=== PATIENT | male | born 1960 | race Caucasian/White ===

== ENCOUNTER 2023-12-27 12:16 | Observation (INO) | payer OTHER ==
--- OUTSIDE RECORDS SUMMARY | 2023-12-27 12:20 | XMS REPORT | Continuity of Care Document ---
Author Name Unknown Address [address] [facility] [address] [place] [address] [facility] thconnect Address [address] [facility] [address] [place] [address] Care Team Providers Care Cloth Weaver Name Role Phone Ria Meraz MD Primary Care Physician DENNISE CUMMINS Attending Clinician Maru Dennise Lee MD Attending Clinician RIA MERAZ Attending Clinician Unavailable RIA MERAZ Attending Clinician Unavailable Darell Madera RN Attending Clinician Unavailabl e Doctor Unassigned, [place] Attending Clinician U navailable Testing, [facility] Pulmonary Function Attending Clinic anel Unavailable LUZ ODEN Attending Clinician Unajustine labtatiana Lab, Ang - Db Attending Clinician Unavailable RADIOLOGY Attending Clinician Unavailable Radiology Attending Clinician Unavailable ED KOROMA Admitting Clinician Unavail able Payers Payer Name Policy Type Policy Number Effective Date Expirati on Date Source [employer] II [id number] 2021 00:00:00 00:00:00 Problems Condition Name Condition Details Condition Category Status Onset Date Resolution Date Last Treatment Date Treating Clinician Comments Source Erectile dysfunctio n, unspecifie d erectile dysfunctio n type Erectile dysfunctio n, unspecifie d erectile dysfunctio n type Disease Active 2021-09 017 00:00: 00 [facility] Lung nodule < 6cm on CT Lung nodule < 6cm on CT Disease Active 05-26 00:00: 00 [facility] Adrenal incidental john Adrenal incidental john Disease Active 05-26 00:00: 00 [facility] Restless leg syndrome Restless leg syndrome Disease Active 05-18 00:00: 00 [facility] Muscle cramps Muscle cramps Disease Active 05-18 00:00: 00 [facility] Periodic limb movement disorder Periodic limb movement disorder Disease Active 05-18 00:00: 00 [facility] No known active problems No known active problems Disease [facility] Allergies, Adverse Reactions, Alerts Allergy Name Allergy Type Status Severity Reaction(s) Onset Date Inactive Date Treating Clinician Comments Source NO KNOWN ALLERGIE S Drug Class Active [facility] Social History Social Habit Start Date Stop Date Quantity Comments Source [facility] History of tobacco use Cigarette Smoker [facility] History SDOH Alcohol Frequency [facility] History SDOH Alcohol Std Drinks [facility] History SDOH Alcohol Binge [facility] History of Social function 2023-05-03 00:00:00 2023-05-03 00:00:00 [facility] Alcohol intake 2023-05-03 00:00:00 2023-05-03 00:00:00 Current drinker of alcohol (finding) [facility] Exposure to SARS-CoV-2 (event) 2022-06-23 00:00:00 2022-07-03 15:51:00 Not sure [facility] Cigarettes smoked current (pack per day) - Reported 2022-05-18 00:00:00 2022-05-18 00:00:00 [facility] Cigarette pack-years 2022-05-18 00:00:00 2022-05-18 00:00:00 [facility] Tobacco use and exposure 2022-05-18 00:00:00 2022-05-18 00:00:00 Smokeless tobacco non-user [facility] Alcohol Comment 2022-05-05 00:00:00 2022-05-05 00:00:00 3-4 times a week, 7 7's [facility] Sex Assigned At 1960 00:00:00 1960 00:00:00 [facility] Smoking Status Start Date Stop Date Source Smokes tobacco daily 2022-05-18 00:00:00 [facility] Medications Ordered Medication Name Filled Medication Name Start Date Stop Date Current Medication? Ordering Clinician Indication Dosage Frequency Signature (SIG) Comments Components Source varenicline (CHANTIX) 1 mg tablet 05-31 00:00: 00 Yes [id number] 1mg Take 1 tablet by mouth in the morning and 1 tablet in the evening. [facility] gabapentin 100 mg capsule 05-03 00:00: 00 Yes [id number] 100mg Take 1 capsule by mouth every evening. [facility] sildenafiL 50 mg tablet 05-03 00:00: 00 Yes [id number] 50mg Take 1 tablet by mouth every evening as needed for Other (Take 1 hour befor intercours e). [facility] varenicline (CHANTIX STARTING MONTH BOX) 0.5 mg (11)- 1 mg (42) tablet 05-03 00:00: 00 Yes [id number] Take one 0.5mg tab by mouth once daily for 3 days, then one 0.5mg tab twice daily for 4 days, then one 1mg tab twice daily. [facility] gabapentin 100 mg capsule 2021-09 00:00: 00 05-03 00:00 :00 No [id number] 100mg Take 1 capsule by mouth every evening. [facility] sildenafiL 50 mg tablet 2021-09 00:00: 00 05-03 00:00 :00 No [id number] 50mg Take 1 tablet by mouth every evening as needed for Other (Take 1 hour befor intercours e). [facility] gabapentin 100 mg capsule 05-18 00:00: 00 07-03 00:00 :00 No [id number] 100mg Take 1 capsule by mouth every evening. [facility] sildenafiL 50 mg tablet 05-18 00:00: 00 07-03 00:00 :00 No [id number] 50mg Take 1 tablet by mouth every evening as needed for Other (Take 1 hour befor intercours e). [facility] No known medications 8 08:20: 30 No No known medication s [facility] Immunizations Ordered Immunization Name Filled Immunization Name Date Status Comments Source SARS-COV-2 COVID-19 MADELYN/J&J VACCINE 2020-12-27 00:00:00 Completed [facility] SARS-COV-2 COVID-19 MADELYN/J&J VACCINE 2020-12-27 00:00:00 Completed [facility] SARS-COV-2 COVID-19 MADELYN/J&J VACCINE 2020-12-27 00:00:00 Completed [facility] SARS-COV-2 COVID-19 MADELYN/J&J VACCINE 2020-12-27 00:00:00 Completed [facility] SARS-COV-2 COVID-19 MADELYN/J&J VACCINE 2020-12-27 00:00:00 Completed [facility] SARS-COV-2 COVID-19 MADELYN/J&J VACCINE 2020-12-27 00:00:00 Completed [facility] SARS-COV-2 COVID-19 MADELYN/J&J VACCINE 2020-12-27 00:00:00 Completed [facility] SARS-COV-2 COVID-19 MADELYN/J&J VACCINE 2020-12-27 00:00:00 Completed [facility] SARS-COV-2 COVID-19 MADELYN/J&J VACCINE 2020-12-27 00:00:00 Completed [facility] SARS-COV-2 COVID-19 MADELYN/J&J VACCINE 2020-12-27 00:00:00 Completed [facility] SARS-COV-2 COVID-19 MADELYN/J&J VACCINE 2020-12-27 00:00:00 Completed [facility] SARS-COV-2 COVID-19 MADELYN/J&J VACCINE 2020-12-27 00:00:00 Completed [facility] SARS-COV-2 COVID-19 MADELYN/J&J VACCINE 2020-12-27 00:00:00 Completed [facility] SARS-COV-2 COVID-19 MADELYN/J&J VACCINE Unknown Completed [facility] SARS-COV-2 COVID-19 MADELYN/J&J VACCINE Unknown Completed [facility] Vital Signs Vital Name Observation Time Observation Value Comments S ource Systolic blood pressure 2023-05-03 19:18:00 123 mm[Hg] [facility] Diastolic blood pressure 2023-05-03 19:18:00 81 mm[Hg] [facility] Heart rate 2023-05-03 19:18:00 75 /min [facility] Body temperature 2023-05-03 19:18:00 36.72 Ursula [facility] Body height 2023-05-03 19:18:00 170.2 cm [facility] Body weight 2023-05-03 19:18:00 71.804 kg [facility] BMI 2023-05-03 19:18:00 24.79 kg/m2 [facility] Oxygen saturation in Arterial blood by Pulse oximetry 2023-05-03 19:18:00 97 /min [facility] Systolic blood pressure 2022-07-03 21:08:00 122 mm[Hg] [facility] Diastolic blood pressure 2022-07-03 21:08:00 71 mm[Hg] [facility] Heart rate 2022-07-03 21:08:00 70 /min [facility] Body temperature 2022-07-03 21:08:00 36.67 Ursula [facility] Body height 2022-07-03 21:08:00 170.2 cm [facility] Body weight 2022-07-03 21:08:00 73.936 kg [facility] BMI 2022-07-03 21:08:00 25.53 kg/m2 [facility] Oxygen saturation in Arterial blood by Pulse oximetry 2022-07-03 21:08:00 97 /min [facility] Systolic blood pressure 2022-05-18 21:19:00 130 mm[Hg] [facility] Diastolic blood pressure 2022-05-18 21:19:00 73 mm[Hg] [facility] Heart rate 2022-05-18 21:19:00 89 /min [facility] Body temperature 2022-05-18 21:19:00 36.39 Ursula [facility] Body height 2022-05-18 21:19:00 170.2 cm [facility] Body weight 2022-05-18 21:19:00 71.668 kg [facility] BMI 2022-05-18 21:19:00 24.75 kg/m2 [facility] Oxygen saturation in Arterial blood by Pulse oximetry 2022-05-18 21:19:00 97 /min [facility] Systolic blood pressure 2022-05-05 13:21:00 130 mm[Hg] [facility] Diastolic blood pressure 2022-05-05 13:21:00 88 mm[Hg] [facility] Heart rate 2022-05-05 13:20:00 77 /min [facility] Body temperature 2022-05-05 13:20:00 36.89 Ursula [facility] Body height 2022-05-05 13:20:00 170.2 cm [facility] Body weight 2022-05-05 13:20:00 72.077 kg [facility] BMI 2022-05-05 13:20:00 24.89 kg/m2 [facility] Oxygen saturation in Arterial blood by Pulse oximetry 2022-05-05 13:20:00 98 /min [facility] Procedures Procedure Date / Time Performed Performing Clinicia n Source EXTERNAL PROVIDER RECORDS 2022-07-20 05:01:00 Doctor Unassigned, [place] [facility] DEXA AXIAL (HIP AND SPINE) 2022-05-24 21:03:16 Ria Meraz [facility] Encounters Start Date/Time End Date/Time Encounter Type Admission Type Attending Clinicians Care Facility Care Department Encounter ID Source 2023-12-27 09:00:00 2023-12-27 09:00:00 Outpatient DENNISE MITCHELL [facility] [id number] [facility] 2023-12-27 00:00:00 2023-12-27 00:00:00 Nurse Triage Dennise Cummins Thad [facility] 1.2.840.114 350.1.13.10 4.2.7.2.686 [id number] [facility] 2023-09-03 08:00:00 2023-09-03 08:00:00 Outpatient RIA [facility] [id number] [facility] 2023-05-26 00:00:00 2023-05-26 00:00:00 Outpatient RIA [facility] [id number] [facility] 2023-05-25 00:00:00 2023-05-25 00:00:00 Case Management Darell Madera CHANA ZENDEJAS [facility] 1.2.840.114 350.1.13.10 4.2.7.2.686 [id number] [facility] 2023-05-16 00:00:00 2023-05-16 00:00:00 Case Management Darell MaderaGarrick [facility] 1.2.840.114 350.1.13.10 4.2.7.2.686 [id number] [facility] 2023-05-03 14:40:00 2023-05-03 15:00:00 [facility] 1.2.840.114 350.1.13.10 4.2.7.2.686 [id number] [facility] 2023-05-03 14:40:00 2023-05-03 14:40:00 Outpatient R RIA MERAZ [facility] [id number] [facility] 2023-04-25 00:00:00 2023-04-25 00:00:00 Case Management Darell Madera Thad ORTIZGarrick [facility] [place] 1.840.114 350.1.13.10 4.2.7.2.686 [id number] [facility] 2022-07-20 00:00:00 2022-07-20 00:00:00 Orders Only Doctor Unassigned, [place] [facility] 1.284.114 350.1.13.10 4.2.7.2.686 [id number] [facility] 2022-07-03 16:00:00 2022-07-03 16:35:48 [facility] [id number] [facility] 2022-07-03 16:00:00 2022-07-03 16:35:48 Office Visit Ria Meraz [facility] 1..840.114 350.1.13.10 4.2.7.2.686 [id number] [facility] 2022-07-03 16:00:00 2022-07-03 16:00:00 [facility] [id number] [facility] 2022-05-24 16:01:24 2022-05-24 23:59:00 [facility] 1..840.114 350.1.13.10 4.2.7.2.686 [id number] [facility] 2022-05-24 15:31:06 2022-05-24 16:00:00 Outpatient R [facility] [id number] [facility] 2022-05-24 15:31:06 2022-05-24 16:00:00 Hospital Encounter Kt [facility] 1..840.114 350.1.13.10 4.2.7.2.686 [id number] [facility] 2022-05-23 00:00:00 2022-05-23 00:00:00 Letter (Out) Testing, [facility] Pulmonary Function [facility] 1..840.114 350.1.13.10 4.2.7.2.686 [id number] [facility] 2022-05-18 16:00:00 2022-05-18 17:01:53 Office Visit Kt [facility]ANA [facility] 1..840.114 350.1.13.10 4.2.7.2.686 [id number] [facility] 2022-05-18 16:00:00 2022-05-18 16:00:00 Outpatient R KT [facility] [id number] [facility] 2022-05-09 13:30:00 2022-05-09 13:30:00 Outpatient LUZ RESTREPO [facility] [id number] [facility] 2022-05-05 08:00:00 2022-05-05 11:11:52 Outpatient R KT [facility] [id number] [facility] 2022-05-05 08:00:00 2022-05-05 11:11:52 Office Visit Kt [facility]ANA 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 [facility] 1.2.840.114 350.1.13.10 4.2.7.2.686 [id number] [facility] 2022-05-05 00:00:00 2022-05-05 00:00:00 Orders Only Doctor Unassigned, [place] [facility] 1..840.114 350.1.13.10 4.2.7.2.686 [id number] [facility] 2022-05-05 00:00:00 2022-05-05 00:00:00 Telephone LawandagabyRia [facility] 1..840.114 350.1.13.10 4.2.7.2.686 [id number] [facility] 2021-11-07 13:30:00 2021-11-07 13:30:00 Outpatient R LUZ ODEN [facility] [id number] [facility] 2021-10-06 09:27:35 2021-10-06 23:59:00 Outpatient R RADIOLOGY [facility] [id number] [facility] 2021-10-06 09:27:35 2021-10-06 23:59:00 Hospital Encounter Radiology [facility] 1.840.114 350.1.13.10 4.2.7.2.686 [id number] [facility] Notes Date/Time Note Provider Source 2023-12-27 07:40:00 [id number] NyCpM40zw7bH lqnl/dDWrdX5AqN/7HRwsrj4HYt2ZLmi 1587-77-47L76:40:00 Received patient A&O x's 3, Ambulatory with out aid, gait steady. Patient reports having "chest pain" and described it as pressure in the thoracic area. Stating that it started about 2 days ago and that it "comes and goes". Patient showed no signs of distress at this time. Patient reports that it has caused him to have a "hard time breathing" at times with mild diaphoretics but states that "it doesn't last long at all".O2 99%Pulse 62B/P 107/55Appointment made with Dr. Cummins for 9 am on 12/26. 85005-8Lrwpnurqu encounter RgexUI2340-67-29H51:01:37Telepho ne encounter NoteTXT1.2.840.946964.1.13.104.2 .7.2.874441|[id number] e for patient xmxp87359-5UgrfRRTGGFQQGJBAjikwm clair C-CDA narrative [id number] J Bunte RN[address] Weu[id number] 1093TDUOUHHXBKXZNVPILVJCGT4890-1 08:01:371.2.840.520233.1.72 .3.15|1.2.840.875739.1.13.104.2. 7.2.727879_[id number] Eunice Gonzalez RN [facility] 2023-12-27 07:40:00 3ZeIIFcHFRagezNg/I7j bpPbEN+pPZU/ MygMjz0JkXcSfpKYGHXHU1nBFpXCXRMO 6817-77-08K91:40:00 [place] [id number] encounter SlbuBI6546-88-47D99:38:23Telepho ne encounter NoteTXT1.2.840.758404.1.13.104.2 .7.2.698919|[id number] e for patient htyt63655-0EqffXJPZXIFJQSHDefilh clair C-CDA narrative textFM-FAMILY MEDICINE STAFFFM-FAMILY MEDICINE STAFF[address] PehrPxnbpgbngUgdqisxyrTKBX408825 5253INNBXGGBUKPFGCMBHVCWWP5226-5 12-26T09:38:231.2.840.261276.1.72 .3.15|1.2.840.293136.1.13.104.2. 7.2.727879_[id number] -FAMILY MEDICINE STAFF [facility]
[2023-12-27 13:11] LABS: Absolute Eosinophils 0.2 K/uL (0-0.5); Absolute Lymphocytes (CBC) 2.2 K/uL (0.7-4.9); Absolute Monocytes 0.5 K/uL (0.1-1.3); Absolute Neutrophil 3.6 K/uL (1.8-8.0); Basophils % 0.2 % (0-1.3); Eosinophils % 3.7 % (0-4.4); Hemoglobin 14.7 g/dL (13.6-17.9); Lymphocytes % 33.9 % (15.3-44.8); MCH 32.3 pg (27.0-35.0); MCHC 34.1 g/dL (32.0-36.0); MCV 94.5 fL (80-100); MPV 6.7 fL (7.6-11.3); Monocytes % 7.5 % (3.3-12.3); Neutrophils % 54.7 % (41.7-73.7); Platelets 356 thou/uL (152-406); RBC Red Blood Cell Count 4.55 M/uL (4.33-5.43); Red Cell Distribution Width 12.5 % (12.1-15.2)
[2023-12-27 13:15] LABS: PT Prothrombin Time 12.2 SECONDS (9.5-12.5); Protime INR 1.11
[2023-12-27 13:32] LABS: Albumin 3.7 g/dL (3.4-5.0); Albumin/Globulin Ratio 0.9 (1.1-1.8); Anion Gap 8.9 mEq/L (5.0-15.0); Bilirubin Direct 0.2 mg/dL (0-0.2); Bilirubin Indirect, Calculated 0.6 mg/dL (0.2-0.8); Bilirubin Total 0.8 mg/dL (0.2-1.0); Globulin 3.9 g/dL (2.3-3.5); Potassium 3.9 mEq/L (3.5-5.1); Protein, Total 7.6 g/dL (6.4-8.2); Troponin High Sensitivity 3.6 pg/mL (<58.9)
--- NOTE | 2023-12-27 13:39 | RAD REPORT ---
EXAM DESCRIPTION: RAD - Chest Single View - 12/27/2023 1:32 pm CLINICAL HISTORY: CHEST PAIN Chest pain. COMPARISON: <Comparisons> FINDINGS: Portable technique limits examination quality. The lungs are grossly clear. The heart is normal in size. No displaced fractures. IMPRESSION: No acute intrathoracic process suspected.
[2023-12-27] MEDS ORDERED: ASPIRIN 81 MG CHEWABLE TABLET ONE (15:31)
--- NOTE | 2023-12-27 15:34 | EDPHYS ---
Physician Documentation [facility] Name: Say Mccarthy Age: 63 yrs Sex: Male : 1960 Arrival Date: 12/27/2023 Time: 12:16 Bed 18 Private MD: ED Physician Jack Victoria HPI: 12/26 15:26 This 63 yrs old Male presents to ER via Ambulatory with complaints of Chest Tightness. rn 15:26 The patient or guardian reports chest pain that is located primarily in the substernal rn area. Onset: 3 day(s) ago. The pain radiates to both shoulders. Associated signs and symptoms: Pertinent negatives: abdominal pain, cough, diaphoresis, shortness of breath. The chest pain is described as a heaviness. Duration: The patient or guardian reports multiple episodes, that are intermittent. Modifying factors: The symptoms are alleviated by nothing. the symptoms are aggravated by nothing. Severity of pain: At its worst the pain was moderate in the emergency department the pain has improved. The patient has not experienced similar symptoms in the past. Feels likePatient reports 2 to 3 days of intermittent chest pain, substernal, pressure, and is kneeling on his chest, radiates to bilateral shoulders. Father with [place] in his 50s. Patient heavy smoker and has hypertension. No recent trauma. Initially was bothering him when he was at work and active but today started at rest. No previous cardiac history or workup for that matter.. Historical: - Allergies: 12:27 No Known Allergies; ll1 - Home Meds: 12:27 gabapentin 300 mg oral capsule [Active]; ll1 - PMHx: 12:27 None; ll1 - PSHx: 12:27 leg SX with hardware placed; ll1 - Immunization history:: Adult Immunizations. - Social history:: Smoking status: Patient denies any tobacco usage or history of. - Family history:: not pertinent. - Hospitalizations: : No recent hospitalization is reported. ROS: 15:26 Constitutional: Negative for fever, chills, and weight loss, Eyes: Negative for injury, rn pain, redness, and discharge, Neck: Negative for injury, pain, and swelling, Cardiovascular: + chest pain Respiratory: Negative for shortness of breath, cough, wheezing, and pleuritic chest pain, Abdomen/GI: Negative for abdominal pain, nausea, vomiting, diarrhea, and constipation, MS/Extremity: Negative for injury and deformity, Skin: Negative for injury, rash, and discoloration, Neuro: Negative for headache, weakness, numbness, tingling, and seizure, Exam: 15:28 Constitutional: This is a well developed, well nourished patient who is awake, alert, rn and in no acute distress. Head/Face: Normocephalic, atraumatic. Cardiovascular: Regular rate and rhythm, no murmur. No pulse deficits. Respiratory: No increased work of breathing, no retractions or nasal flaring. Abdomen/GI: Soft, non-tender MS/ Extremity: Pulses equal, no cyanosis. Neuro: Awake and alert, GCS 15 Vital Signs: 12:28 BP 137 / 99; Pulse 64; Resp 17; Temp 97.3; Pulse Ox 98% ; Weight 72.57 kg; Height 5 ft. ll1 7 in. ; Pain 5/10; 15:20 BP 115 / 99; Pulse 53; Resp 20; Pulse Ox 97% ; Pain 0/10; nj1 16:33 BP 136 / 86; Pulse 41; Resp 19; Pulse Ox 96% on R/A; nj1 12:28 Body Mass Index 25.06 (72.57 kg, 170.18 cm) ll1 12:28 Pain Scale: Adult ll1 15:20 Pain Scale: Adult nj1 MDM: 12:31 Patient medically screened. rn 15:23 HEART Score: History: Highly Suspicious (2), ECG: Non specific repolarization rn disturbance / LBTB / PM (1), Age: > 45 and < 65 years (1), Risk Factors: 1 or 2 risk factors (1), Troponin: < or = 1 x Normal Limit (0), Total Score = 5. 15:28 Differential diagnosis: acute myocardial infarction, acute pericarditis, coronary rn artery disease pericarditis, pleurisy, pneumothorax, stable angina, unstable angina. The patient was given aspirin in the Emergency Department. Data reviewed: vital signs, nurses notes, lab test result(s), EKG, radiologic studies, plain films, and as a result, I will admit patient. Counseling: I had a detailed discussion with the patient and/or guardian regarding the historical points, exam findings, and any diagnostic results supporting the discharge/admit diagnosis, lab results, radiology results, the need for further work-up and treatment in the hospital. Special discussion:. 12/26 12:39 Order name: Basic Metabolic Panel; Complete Time: 14:44 rn 12/26 12:39 Order name: CBC with Diff; Complete Time: 14:44 rn 12/26 12:39 Order name: LFT's; Complete Time: 14:44 rn 12/26 12:39 Order name: NT PRO-BNP; Complete Time: 14:44 rn 12/26 12:39 Order name: PT-INR; Complete Time: 14:44 rn 12/26 12:39 Order name: Troponin HS; Complete Time: 14:44 rn 12/26 15:55 Order name: Troponin High Sensitivity [facility] 12/26 15:55 Order name: Troponin High Sensitivity [facility] 12/26 15:55 Order name: Troponin High Sensitivity [facility] 12/26 12:39 Order name: XRAY Chest (1 view); Complete Time: 14:44 rn 12/26 12:39 Order name: EKG; Complete Time: 12:40 rn 12/26 12:39 Order name: Cardiac monitoring; Complete Time: 15:20 rn 12/26 12:39 Order name: EKG - Nurse/Tech; Complete Time: 15:20 rn 12/26 12:39 Order name: IV Saline Lock; Complete Time: 13:01 rn 12/26 12:39 Order name: Labs collected and sent; Complete Time: 13:01 rn 12/26 12:39 Order name: O2 Per Protocol; Complete Time: 15:20 rn 12/26 12:39 Order name: O2 Sat Monitoring; Complete Time: 15:20 rn Administered Medications: 15:35 Drug: Aspirin PO Chewable Tablet 324 mg PO once; 81 mg tablets x 4 Route: PO; nj1 Disposition Summary: 12/27/23 15:33 Hospitalization Ordered Notes: Hospitalization Status: Observation rn Provider: Richard Victoria rn Location: Telemetry/MedSurg (observation) rn Condition: Stable rn Problem: new rn Symptoms: have improved rn Bed/Room Type: Standard rn Room Assignment: 406(12/27/23 16:27) em1 Diagnosis - Chest pain, unspecified rn Forms: - Medication Reconciliation Form rn - SBAR form rn - Leadership Thank You Letter rn Signatures: Dispatcher [employer] EDMS Jack Victoria MD MD rn Martinez, Rod em1 Jose Matias RN RN ll1 Klaudia Sullivan, RN RN nj1 Corrections: (The following items were deleted from the chart) 12:40 12:40 BASIC METABOLIC PANEL+C.LAB.BRZ ordered. EDMS EDMS 12:40 12:40 CBC+H.LAB.BRZ ordered. EDMS EDMS 12:40 12:40 HEPATIC FUNCTION+C.LAB.BRZ ordered. EDMS EDMS 12:40 12:40 PROBNP+C.LAB.BRZ ordered. EDMS EDMS 12:40 12:40 PROTIME (+INR)+COAG.LAB.BRZ ordered. EDMS EDMS 12:40 12:40 Troponin High Sensitivity+C.LAB.BRZ ordered. EDMS EDMS 15:29 15:26 Constitutional: Negative for fever, chills, and weight loss, rn rn 16:27 15:33 rn em1
--- NOTE | 2023-12-27 15:34 | ER ---
Nurse's Notes [facility] Name: Say Mccarthy Age: 63 yrs Sex: Male : 1960 Arrival Date: 12/27/2023 Time: 12:16 Bed 18 Private MD: Diagnosis: Chest pain, unspecified Presentation: 12/26 12:28 Chief complaint: Patient states: Chest tightness 1 episode daily since Sunday. Dizzy, ll1 lightheaded when he has pain. Coronavirus screen: Client denies travel out of the [place] in the last 14 days. At this time, the client does not indicate any symptoms associated with coronavirus-19. Ebola Screen: Patient denies travel to an Ebola-affected area in the 21 days before illness onset. Initial Sepsis Screen: Does the patient meet any 2 criteria? No. Patient's initial sepsis screen is negative. Does the patient have a suspected source of infection? No. Patient's initial sepsis screen is negative. Risk Assessment: Do you want to hurt yourself or someone else? Patient reports no desire to harm self or others. Onset of symptoms was December 25, 2023. 12:28 Method Of Arrival: Ambulatory ll1 12:28 Acuity: SYLVIA 3 ll1 Triage Assessment: 12:38 General: Appears uncomfortable, Behavior is calm, cooperative, appropriate for age. ll1 Pain: Denies pain. Cardiovascular: Reports chest pain, lightheadedness. Historical: - Allergies: 12:27 No Known Allergies; ll1 - Home Meds: 12:27 gabapentin 300 mg oral capsule [Active]; ll1 - PMHx: 12:27 None; ll1 - PSHx: 12:27 leg SX with hardware placed; ll1 - Immunization history:: Adult Immunizations. - Social history:: Smoking status: Patient denies any tobacco usage or history of. - Family history:: not pertinent. - Hospitalizations: : No recent hospitalization is reported. Screenin:55 [facility] ED Fall Risk Assessment (Adult) History of falling in the last 3 months, nj1 including since admission No falls in past 3 months (0 pts) Confusion or Disorientation No (0 pts) Intoxicated or Sedated No (0 pts) Impaired Gait No (0 pts) Mobility Assist Device Used No (0 pt) Altered Elimination No (0 pt) Score/Fall Risk Level 0 - 2 = Low Risk Oriented to surroundings, Maintained a safe environment, Hourly rounding (assess needs \T\ fall precautionary measures) done. Abuse screen: Denies threats or abuse. Denies injuries from another. Nutritional screening: No deficits noted. Tuberculosis screening: No symptoms or risk factors identified. Assessment: 15:20 General: Appears in no apparent distress. comfortable, Behavior is calm, cooperative, nj1 appropriate for age. 15:20 Pain: Denies pain. Neuro: Level of Consciousness is awake, alert, obeys commands, nj1 Oriented to person, place, time, situation. Cardiovascular: Denies chest pain, Patient's skin is warm and dry. Rhythm is regular. Respiratory: Airway is patent Respiratory effort is even, unlabored. 15:20 Pain: Pain began 2-3 days ago. nj1 Vital Signs: 12:28 BP 137 / 99; Pulse 64; Resp 17; Temp 97.3; Pulse Ox 98% ; Weight 72.57 kg; Height 5 ft. ll1 7 in. ; Pain 5/10; 15:20 BP 115 / 99; Pulse 53; Resp 20; Pulse Ox 97% ; Pain 0/10; nj1 16:33 BP 136 / 86; Pulse 41; Resp 19; Pulse Ox 96% on R/A; nj1 12:28 Body Mass Index 25.06 (72.57 kg, 170.18 cm) ll1 12:28 Pain Scale: Adult ll1 15:20 Pain Scale: Adult mn1 ED Course: 12:22 Patient arrived in ED. mr 12:24 Arm band placed on. ll1 12:30 Triage completed. ll1 12:31 Jack Victoria MD is Attending Physician. rn 13:01 Basic Metabolic Panel Sent. bc6 13:01 CBC with Diff Sent. bc6 13:01 LFT's Sent. bc6 13:01 NT PRO-BNP Sent. bc6 13:01 PT-INR Sent. bc6 13:01 Troponin HS Sent. bc6 13:02 Initial lab(s) drawn, by de, sent to lab. Inserted saline lock: 20 gauge in left bc6 antecubital area, using aseptic technique. Blood collected. 13:33 XRAY Chest (1 view) In Process Unspecified. EDMS 15:07 Nate, Klaudia, RN is Primary Nurse. nj1 15:20 Patient has correct armband on for positive identification. Placed in gown. Bed in low nj1 position. Call light in reach. 15:20 Provided Education on: call light, fall precautions. Client placed on continuous nj1 cardiac and pulse oximetry monitoring. NIBP monitoring applied. pvc monitor on. 15:20 EKG done, by ED staff, reviewed by Jack Victoria MD. nj1 15:33 Richard Victoria MD is Hospitalizing Provider. rn 17:01 Diet tray given. [id number] Administered Medications: 15:35 Drug: Aspirin PO Chewable Tablet 324 mg PO once; 81 mg tablets x 4 Route: PO; nj1 Outcome: 15:33 Decision to Hospitalize by Provider. rn 17:05 Patient left the ED. iw Signatures: Dispatcher [employer] EDMS Ana David, Reg Reg Xuan Mcelroy, RN RN iw Jack Victoria MD MD rn Lewis, Lynsay, RN RN ll1 Marielle Montana Norma, RN RN nj1 Marcel King jg11 Corrections: (The following items were deleted from the chart) 12:38 12:28 BP 137 / 99; Pulse 64bpm; Resp 17bpm; Pulse Ox 98%; 72.57 kg; Height 5 ft. 7 in.; ll1 BMI: 25.0; Pain 5/10, Adult; ll1 15:54 15:20 Pulse 53bpm; Resp 20bpm; Pulse Ox 97%; Pain 0/10, Adult; nj1 nj1
--- NOTE | 2023-12-27 16:28 | P.HP ---
Certification for Inpatient Patient admitted to: Observation With expected LOS: <2 Midnights Patient will require the following post-hospital care: None Practitioner: I am a practitioner with admitting privileges, knowledge of patient current condition, hospital course, and medical plan of care. Services: Services provided to patient in accordance with Admission requirements found in Title 42 Section 412.3 of the Code of Federal Regulations Patient History Date of Service: 12/27/23 Reason for admission: Chest pain History of Present Illness: Otherwise healthy 63-year-old male presents emergency department chief complaint of chest tightness. He reports his been having intermittent symptoms the past 3 days, last 2 days were associated with exertion and dizziness, today his pain occurred while at rest. He denies ever having a stress test or heart catheterization in the past, his risk factors include long-term tobacco use, also his father of a heart attack in his 50s. He was evaluated in the emergency department as initial hesitancy troponin was 3.6, EKG without STEMI criteria chest x-ray is unremarkable. ED provider wishes to admit patient under observation for ACS rule out. - Past Medical/Surgical History -: None -: Left leg surgery Psychosocial/ Personal History: Lives with his significant other, works at [employer] - Family History Father -: Heart disease - Social History Smoking Status: Current some day smoker Alcohol use: No CD- Drugs: No Caffeine use: Yes Place of Residence: Home Review of Systems 10-point ROS is otherwise unremarkable Cardiovascular: Chest Pain, As per HPI Physical Examination - Physical Exam General: Alert, In no apparent distress, Oriented x3 HEENT: Atraumatic, PERRLA, Mucous membr. moist/pink Neck: Supple, 2+ carotid pulse no bruit, No LAD Respiratory: Clear to auscultation bilaterally, Normal air movement Cardiovascular: Regular rate/rhythm, Normal S1 S2 Gastrointestinal: Normal bowel sounds, No tenderness Musculoskeletal: No tenderness Integumentary: No rashes Neurological: Normal speech, Normal strength at 5/5 x4 extr, Normal tone, Normal affect - Studies Laboratory Data (last 24 hrs) 12/27/23 12/27/23 12/27/23 13:00 13:00 13:00 WBC 6.60 Hgb 14.7 Hct 43.0 Plt Count 356 PT 12.2 INR 1.11 Sodium 139 Potassium 3.9 BUN 10 Creatinine 1.32 H Glucose 113 H Total Bilirubin 0.8 AST 17 ALT 23 Alkaline Phosphatase 56 Assessment and Plan - Plan Assessment: Chest pain rule out ACS Plan: Chest pain rule out ACS Cardiology consulted Initial high-sensitivity troponin normal, will continue to trend Monitor on telemetry Daily aspirin DVT PPX: Lovenox Code status: Full Discharge Plan: Home Plan to discharge in: 24 Hours - Advance Directives Does patient have a Living Will: No Does patient have a Durable POA for Healthcare: No - Code Status/Comfort Care Code Status Assessed: Yes (Full code) Critical Care: No Time Spent Managing Pts Care (In Minutes): 70
[2023-12-27] MEDS ORDERED: ONDANSETRON 4 MG/2 ML VIAL IV PRN (18:17)
[2023-12-27] MEDS ORDERED: MORPHINE 2 MG/ML SYR IV PRN (18:17)
[2023-12-27 18:40] VITALS: BMI 25.0
[2023-12-27] MEDS: NA CHLORIDE 0.9% 1,000 ML IV SCH (21:18)
[2023-12-27] MEDS: GABAPENTIN 100 MG CAP PO SCH (21:18)
[2023-12-27] MEDS: ENOXAPARIN 40 MG/0.4 ML SQ SCH (21:19)
--- NOTE | 2023-12-27 23:12 | CON ---
Date of Consultation: 12/27/2023 Reason For Consultation: Chest pain. History Of Present Illness: A 63-year-old male, otherwise healthy, comes in with chest pain, pressur e-like, left-sided, radiates to shoulder and neck. He was working at his job which is an [employer], just walking and doing his job and started feeling pressure-like discomfort in the chest, radiate s to his neck, became clammy, diaphoretic, and fairly short of breath and stopped what he was doing, and sent to the emergency room where he started feeling better and he had another episode this mornin g which was much maturity checker and resolved by itself. The patient is a smoker about a pack per day. Past Medical History: Tobacco abuse. Medications: None. Allergies: NO KNOWN DRUG ALLERGIES. Family History: There is history of premature coronary artery disease in the father's side. Social History: He is an active smoker. Does not drink or use any drugs. Review of Systems: All systems reviewed and they were negative except as mentioned in the HPI. Physical Examination: Vital Signs: Reviewed. Head and Neck: Pupils are equal, reactive to light. Intact eye movements. No JVD. No cervical lym phadenopathy. Neck is supple. Thyroid is not enlarged. Lungs: Clear to auscultation bilaterally. No rhonchi, wheezing, or crackles. No accessory muscle u se. Heart: Regular rate and rhythm. No extra sounds. Abdomen: Soft, nontender. Bowel sounds positive. No organomegaly. No masses or hernia. No rigidi ty or rebound. Extremities: No edema, clubbing, or cyanosis. Intact pulses. Skin: No rash or nodule. Neurologic: Alert, awake, oriented x3. No acute focal deficits appreciated. Investigations: Hemoglobin 14.7, white blood cell count is 6.6, BUN 10, creatinine 1.32, and troponi n is negative at 3.6. Assessment/recommendation: 1.Chest pain, very typical, and he is a heavy smoker. This is likely unstable angina. Keep n.p.o. past midnight. We will plan for coronary angiogram in the morning. Recommend to continue aspirin an d Lovenox, to hold after tonight dose. 2.Acute renal failure. No history of renal disease. I recommend gentle hydration. Re-evaluate lab s in the morning. 3.Active smoker. The patient was counseled to quit. SR/MODL Voice ID: [id number] Report ID: [id number]
[2023-12-28 07:27] LABS: Absolute Basophils 0.1 K/uL (0-0.5); Absolute Eosinophils 0.3 K/uL (0-0.5); Absolute Lymphocytes (CBC) 2.1 K/uL (0.7-4.9); Absolute Monocytes 0.5 K/uL (0.1-1.3); Basophils % 0.9 % (0-1.3); Eosinophils % 5.4 % (0-4.4); Hematocrit 40.3 % (39.6-49.0); Hemoglobin 13.7 g/dL (13.6-17.9); Lymphocytes % 34.4 % (15.3-44.8); MCH 32.4 pg (27.0-35.0); MCV 95.4 fL (80-100); MPV 7.1 fL (7.6-11.3); Monocytes % 8.7 % (3.3-12.3); Neutrophils % 50.6 % (41.7-73.7); Platelets 313 thou/uL (152-406); RBC Red Blood Cell Count 4.23 M/uL (4.33-5.43); Red Cell Distribution Width 12.2 % (12.1-15.2)
[2023-12-28] MEDS: ASPIRIN EC 81 MG TAB PO SCH (07:45)
[2023-12-28 07:51] LABS: Anion Gap 5.6 mEq/L (5.0-15.0); Potassium 4.6 mEq/L (3.5-5.1); Thyroid Stimulating Hormone 1.57 uIU/mL (0.358-3.740)
[2023-12-28] MEDS ORDERED: MIDAZOLAM HCL 2 MG/2 ML INJ ONE (12:04)
[2023-12-28] MEDS ORDERED: FENTANYL CITR 100 MCG/2 ML ONE (12:04)
[2023-12-28] MEDS ORDERED: LIDOCAINE 1% 20 ML MDV ONE (12:04)
[2023-12-28] MEDS ORDERED: VERAPAMIL HCL 10 MG/4 ML VIAL IV ONE (12:04)
[2023-12-28] MEDS ORDERED: CLOPIDOGREL 75 MG TABLET ONE (12:05)
[2023-12-28] MEDS ORDERED: HEPARIN 10,000 UNIT/10 ML VIAL IV ONE (12:05)
[2023-12-28] MEDS ORDERED: HEPARIN 5000 UNIT/ML 1 ML VIAL ONE (12:05)
[2023-12-28] MEDS ORDERED: TICAGRELOR 90 MG TABLET PO ONE (12:05)
[2023-12-28] MEDS ORDERED: ATROPINE SULF 1 MG/10 ML SYR IV ONE (12:05)
[2023-12-28] MEDS ORDERED: ASPIRIN 325 MG TAB ONE (12:06)
[2023-12-28] MEDS ORDERED: HEPA 1000U/500MLS 2,000 UNIT/1,000 ML BAG IV ONE (12:06)
[2023-12-28] MEDS ORDERED: NA CHLORIDE 0.9% 500 ML ONE (12:26)
--- NOTE | 2023-12-28 13:17 | P.PN ---
Date of Service: 12/28/23 Subjective: Denies further episodes of chest pain overnight No acute events noted throughout the evening ROS: 10 point ROS as noted above, otherwise negative Physical exam GEN: Alert, oriented, NAD HEENT: Normal conjunctiva, sclera anicteric CV: Regular rate and rhythm, no edema Pulm: Nonlabored respirations on room air ABD: Soft, nontender, nondistended MSK: No joint tenderness Integumentary: No rashes Neuro: Normal speech, normal affect Vitals reviewed Assessment: Chest pain rule out ACS Plan: Chest pain rule out ACS Troponins trended flat Heart catheterization today per cardiology Await results of heart catheterization DVT PPX: Lovenox Code status: Full Discharge Plan: Home Plan to discharge in: 24 Hour Time Spent Managing Pts Care (In Minutes): 35
--- NOTE | 2023-12-28 13:38 | EKG ---
Test Date: 2023-12-27 Test Time: 15:16:10 Drilling Machine Operator: ROSALINA MEASUREMENT RESULTS: Intervals: Rate: 48 [place]: 160 QRSD: 94 QT: 428 QTc: 382 [place]: P: 82 [place]: 160 QRS: -60 T: 18 INTERPRETIVE STATEMENTS: Sinus bradycardia Left axis deviation Nonspecific T wave abnormality Abnormal ECG No previous ECG available for comparison Electronically Signed On 12-28-23 13:37:11 CDT by Waldemar Hayes
[2023-12-28 16:35] VITALS: BP 119/66; TEMP 97.4; O2SAT 95
--- NOTE | 2023-12-28 16:40 | PN ---
Date of Progress Note: 12/28/2023 Subjective: The patient was seen by bedside. No further chest pain. Status post coronary angiogram with clean coronary arteries. Review of Systems: No chest pain, shortness of breath, orthopnea, cough. No nausea, vomiting, diarrhea. All other syst ems reviewed are negative. Physical Examination: Vital Signs: Reviewed. Head and Neck: Pupils are equal, reactive to light. Intact eye movements. No JVD. No cervical lym phadenopathy. Neck is supple. Thyroid is not enlarged. Lungs: Clear to auscultation bilaterally. No rhonchi, rales, or crackles. No accessory muscle use. Heart: Regular rate and rhythm. No extra sounds. Abdomen: Soft, nontender. Bowel sounds positive. No organomegaly. No masses or hernia. No rigidi ty or rebound. Extremities: No edema, clubbing, cyanosis. Intact pulses. Skin: No rash. Neurologic: Alert, awake, oriented x3. No acute focal deficits appreciated. Investigations: Labs reviewed. Assessment/recommendation: 1.Chest pain suggestive of unstable angina. However, coronary angiogram, there is new coronary grazyna ry disease. Recommend to search for other causes of chest pain. Check D-dimer. If it is elevated t o do CT scan of the chest if it was not already done. 2.Smoker. He was counseled this to quit. 3.Elevated LVEDP. Recommend low-salt diet and quit smoking and follow up with the office post disch arge in 2 weeks. SR/MODL Voice ID: [id number] Report ID: [id number]
--- NOTE | 2023-12-28 23:52 | OP ---
Date of Procedure: 12/28/2023 Surgeon: TRESSA RANDALL Procedure Performed: 1.Selective coronary angiogram. 2.Heart catheterization. Indication: Unstable angina. Access: Right radial artery 6-Dutch closed with TR band. Complications: None. Bleeding: Less than 50 mL. Anesthesia: Total sedation time was 30 minutes. Description Of Procedure: After risks, benefits, and alternatives were explained, the patient agreed to procedure and signed informed consent. The patient was brought into the cardiac catheterization laboratory, prepped and draped in the usual sterile fashion. Then I accessed right radial artery usi ng pediatric micropuncture kit and ultrasound guidance placed 6-Dutch standard sheath and took 5-[facility]en [facility] JR4 catheter and aortic root, engaged left main and took standard views and then in the RCA took standard views and the catheter was pushed over the wire into the LV, measured the LVEDP. Pullback d id not record any gradient. Then I removed the catheter and sheath, placed TR band with good hemosta sis. Findings: 1.Left main; very large and normal. 2.LAD; very large and normal. Normal diagonal branches. 3.Ramus intermedius, moderate-sized and normal. 4.RCA; large and dominant and normal. 5.RCA; small, nondominant and normal. 6.LVEDP borderline elevated at 40 mmHg. Conclusion: 1.Normal coronary arteries. 2.Borderline elevated LVEDP. Recommendation: Medical management. /BREE Voice ID: [id number] Report ID: [id number]
--- NOTE | 2023-12-29 12:03 | P.DS ---
Admission Date: 12/27/23 Discharge Date: 12/28/23 Reason for Admission: Chest pain Consultations: CardiologyDr. Hayes Procedures: Left heart cath 12/27-no significant CAD Brief History of Present Illness: Otherwise healthy 63-year-old male presents emergency department chief complaint of chest tightness. He reports his been having intermittent symptoms the past 3 days, last 2 days were associated with exertion and dizziness, today his pain occurred while at rest. He denies ever having a stress test or heart catheterization in the past, his risk factors include long-term tobacco use, also his father of a heart attack in his 50s. He was evaluated in the emergency department as initial hesitancy troponin was 3.6, EKG without STEMI criteria chest x-ray is unremarkable. ED provider wishes to admit patient under observation for ACS rule out. Hospital Course: Assessment: Chest pain rule out ACS Patient was admitted to the hospital for chest pain and underwent cardiac catheterization with no significant coronary artery disease observed. Additionally a DDimer was obtained to rule out pulmonary embolism which was also negative. Troponins were negative x3, no significant events on telemetry during hospital stay. Patient with no further episodes of chest pain and is stable for discharge at this time. Please follow up with your primary care provider in the next 1-2 weeks You should also follow up with Dr. Hayes with cardiology in the next 2-3 weeks <Rangel Hawkins - Last Filed: 12/29/23 12:01> Admission Date: 12/27/23 Discharge Date: 12/29/23 <Richard Victoria - Last Filed: 12/29/23 16:51> Disposition: ROUTINE DISCHARGE Discharge Condition: GOOD Vital Signs/Physical Exam: Temp Pulse Resp BP Pulse Ox 97.4 F 51 16 119/66 95 12/28/23 16:00 12/28/23 16:00 12/28/23 16:00 12/28/23 16:00 12/28/23 16:00 General: Alert, In no apparent distress, Oriented x3 HEENT: Atraumatic, PERRLA Neck: Supple, JVD not distended Respiratory: Clear to auscultation bilaterally, Normal air movement Cardiovascular: Regular rate/rhythm, Normal S1 S2 Gastrointestinal: Normal bowel sounds Musculoskeletal: No tenderness Integumentary: No rashes Neurological: Normal speech, Normal tone Laboratory Data at Discharge: WBC 6.00 thou/uL (4.3-10.9) 12/28/23 06:52 Hgb 13.7 g/dL (13.6-17.9) 12/28/23 06:52 Hct 40.3 % (39.6-49.0) 12/28/23 06:52 Plt Count 313 thou/uL (152-406) 12/28/23 06:52 PT 12.2 SECONDS (9.5-12.5) 12/27/23 13:00 INR 1.11 12/27/23 13:00 Sodium 139 mEq/L (136-145) 12/28/23 06:52 Potassium 4.6 mEq/L (3.5-5.1) D 12/28/23 06:52 BUN 14 mg/dL (7-18) 12/28/23 06:52 Creatinine 1.19 mg/dL (0.70-1.30) 12/28/23 06:52 Glucose 104 mg/dL (74-106) 12/28/23 06:52 Total Bilirubin 0.8 mg/dL (0.2-1.0) 12/27/23 13:00 AST 17 U/L (15-37) 12/27/23 13:00 ALT 23 U/L (16-61) 12/27/23 13:00 Alkaline Phosphatase 56 U/L (45-117) 12/27/23 13:00 Triglycerides 77 mg/dL (<150) 12/28/23 06:52 Cholesterol 182 mg/dL (<200) 12/28/23 06:52 HDL Cholesterol 55 mg/dL (40-60) 12/28/23 06:52 Cholesterol/HDL Ratio 3.31 12/28/23 06:52 <Rangel Hawkins - Last Filed: 12/29/23 12:01> Vital Signs/Physical Exam: Temp Pulse Resp BP Pulse Ox 97.4 F 51 16 119/66 95 12/28/23 16:00 12/28/23 16:00 12/28/23 16:00 12/28/23 16:00 12/28/23 16:00 Laboratory Data at Discharge: WBC 6.00 thou/uL (4.3-10.9) 12/28/23 06:52 Hgb 13.7 g/dL (13.6-17.9) 12/28/23 06:52 Hct 40.3 % (39.6-49.0) 12/28/23 06:52 Plt Count 313 thou/uL (152-406) 12/28/23 06:52 PT 12.2 SECONDS (9.5-12.5) 12/27/23 13:00 INR 1.11 12/27/23 13:00 Sodium 139 mEq/L (136-145) 12/28/23 06:52 Potassium 4.6 mEq/L (3.5-5.1) D 12/28/23 06:52 BUN 14 mg/dL (7-18) 12/28/23 06:52 Creatinine 1.19 mg/dL (0.70-1.30) 12/28/23 06:52 Glucose 104 mg/dL (74-106) 12/28/23 06:52 Total Bilirubin 0.8 mg/dL (0.2-1.0) 12/27/23 13:00 AST 17 U/L (15-37) 12/27/23 13:00 ALT 23 U/L (16-61) 12/27/23 13:00 Alkaline Phosphatase 56 U/L (45-117) 12/27/23 13:00 Triglycerides 77 mg/dL (<150) 12/28/23 06:52 Cholesterol 182 mg/dL (<200) 12/28/23 06:52 HDL Cholesterol 55 mg/dL (40-60) 12/28/23 06:52 Cholesterol/HDL Ratio 3.31 12/28/23 06:52 <Richard Victoria - Last Filed: 12/29/23 16:51> Diet: Regular Activity: Ad jack Time spent managing pt's care (in minutes): 30 <Rangel Hawkins - Last Filed: 12/29/23 12:01> Physician Review: Patient Assessed, Agree with Above Assessment and Plan (Patient seen and examined on rounds this morning with HYDROGRAPHER Shruthi. I performed a substantial part of the MDM during this patient's care today as noted above in the plan of care. Stable for discharge home. Doing well. Negative cath, negative d-dimer, symptoms resolved.) <Richard Victoria - Last Filed: 12/29/23 16:51> Home Medications: Gabapentin 100 mg PO BEDTIME 12/27/23 Physician Discharge Instructions: Patient was admitted to the hospital for chest pain and underwent cardiac catheterization with no significant coronary artery disease observed. Additio nick a DDimer was obtained to rule out pulmonary embolism which was also negative. Troponins were negative x3, no significant events on telemetry during hospital stay. Patient with no further episodes of chest pain and is stable for discharge at this time. Please follow up with your primary care provider in the next 1-2 weeks You should also follow up with Dr. Hayes with cardiology in the next 2-3 weeks Followup: NONE,NONE [Primary Care Provider] - 1-2 Weeks Waldemar Hayes MD [ACTIVE - CAN ADMIT] -
== END 2023-12-28 20:25 | disposition home or self-care (01) ==
LOC: ER 12:16 → ERHOLD 15:50 → 4TH 16:50
PROVIDERS: ADMIT Hospitalist; ATTEND Hospitalist
PROC: 4A023N7 Measurement of Cardiac Sampling and Pressure, Left Heart, Percutaneous Approach (ICD-10-PCS; principal; 2023-12-28)
PROC: B2111ZZ Fluoroscopy of Multiple Coronary Arteries using Low Osmolar Contrast (ICD-10-PCS; 2023-12-28)
DX: R07.89 Other chest pain (principal); N17.9 Acute kidney failure, unspecified; F17.210 Nicotine dependence, cigarettes, uncomplicated; Z71.6 Tobacco abuse counseling; Z82.49 Family history of ischemic heart disease and other diseases of the circulatory system
CPT/HCPCS: 93005; 85025 ×2; 80048 ×2; 36415; 85610; 80061; 85379; 80076; 84443; 84484 ×3; 84439; 83880; 71045; 93458; 76937; 99284; C1893; J1644; J2001; J1650; J2250; J3010; J7040; J7030 ×2; G0378 ×3; 99152; 99153; J0461